=== PATIENT | male | born 1990 | race Caucasian/White ===

== ENCOUNTER 2019-03-28 08:41 | Emergency (ER) | payer SELFPAY ==
[2019-03-28 08:42] VITALS: BP 146/84; PULSE 100; RESP 16; TEMP 36.4; BMI 25.1
--- NOTE | 2019-03-28 08:54 | EKG12_ITS ---
Test Reason : CP Blood Pressure : / mmHG Vent. Rate : 075 BPM Atrial Rate : 075 BPM P-R Int : 146 ms QRS Dur : 104 ms QT Int : 348 ms P-R-T Axes : 077 073 066 degrees QTc Int : 388 ms Normal sinus rhythm with sinus arrhythmia Normal ECG Confirmed by MARY LUX ([id number]), news assignment editor TATIANNA CAMARA ([id number]) on 04/02/2019 12:59:01 PM Referred By: MARIANA Confirmed By:MARY LUX
--- NOTE | 2019-03-28 08:56 | ED.DCSUM_ITS ---
- ER Visit Summary Date of Service: 03/28/19 Chief Complaint: Chest pain History of Present Illness: The patient is a 29 M who was working on Tuesday, 3 days ago, pushing something through mixer. He had pain to the left ribs since that time, worse with exertion, palpation, or deep breathing. He denies shor tness of breath. Physical Examination: Vital signs unremarkable. Patient sitting upright in bed no acute distress. Heart is regular rate and rhythm. Lung sounds are clear. He has reproducible chest wall pain on the left anterior lower ribs, near where the ribs and cartilage meet. No deformity noted. No crepitus noted. Abdomen is soft and nontender. Test Results: EKG is sinus at 75 with no acute ischemia. Rib series with chest x-ray is normal. Emergency Department Course and Treatment: Test results discussed with patient at bedside. He is reassured with the findings. He does not want anything for pain. He wished to leave the emergency room prior to his paperwork being printed. Treatment Plan: [] Disposition: Discharge Impression: Chest wall pain This note was generated with [email or web address] dictation software. It may contain incorrect words, spelling, and punctuation that were not noted in review of the chart prior to signing ED Disposition - Plan for ED Patient: Referrals: Tenzin Lima MD [STAFF PHYSICIAN] -
--- NOTE | 2019-03-28 09:07 | RAD_ITS ---
STUDY: X-RAY - UNILATERAL RIBS ( LEFT ) WITH CHEST REASON FOR EXAM: Male, 29 years old. Rib pain. TECHNIQUE - RIBS: 4 view(s) of the ribs. TECHNIQUE - CHEST: Single PA view of the chest. COMPARISON: None. FINDINGS - RIBS: Normal visualized ribs without a demonstrated fracture. FINDINGS - CHEST: The lungs are clear and expanded. There is no demonstrated pleural abnormality. Normal size heart. Normal mediastinum and ethan. Normal visualized pulmonary arteries. Normal visualized aortic arch and descending thoracic aorta. Normal visualized thoracic spine. Normal visualized ribs, clavicles, and shoulders. There is no demonstrated abnormality of the visualized soft tissue structures of the upper abdomen. RAD/Ribs Uni Min 3V w/PA Chest IMPRESSION: RIBS: Normal x-ray examination of the ribs. CHEST: Normal x-ray examination of the chest. Electronically Signed: Lalit Hernandez, at 9:32 EDT , Service support ,
[2019-03-28 09:58] VITALS: BP 131/91; PULSE 63; RESP 16; O2SAT 98
== END 2019-03-28 10:42 | disposition home or self-care (01) ==
LOC: ED 08:57
PROVIDERS: Emergency Provider Emergency Medicine
DX: R07.89 Other chest pain (principal); Z82.49 Family history of ischemic heart disease and other diseases of the circulatory system
CPT/HCPCS: 71101; 93005; 99282

== ENCOUNTER 2020-04-29 10:43 | Emergency (ER) | payer OTHER, SELFPAY ==
[2020-04-29 10:44] VITALS: BP 153/108; PULSE 89; RESP 16; TEMP 36.6; O2SAT 99; BMI 26.5
--- NOTE | 2020-04-29 11:00 | RAD_ITS ---
STUDY: X-RAY - LEFT HAND REASON FOR EXAM: Male, 30 years old. CRUSHING INJURY, PAIN, SWELLING TECHNIQUE: 3 view(s) of the hand. COMPARISON: None. FINDINGS: Normal radiocarpal articulation. Normal distal radioulnar joint. Normal visualized carpal bones. Normal carpal articulations Normal carpometacarpal articulation of the thumb. Normal second through fifth carpometacarpal joints. Comminuted fracture at the base of the third and fourth metacarpals. Nondisplaced fracture at the base of the fifth metacarpal. Normal metacarpophalangeal joint of the thumb. Normal interphalangeal joint of the thumb. Normal proximal and distal phalanges of the thumb. Normal metacarpophalangeal joints of the second through fifth fingers. Normal proximal and distal interphalangeal joints of the second through fifth fingers. Normal phalanges of the second through fifth fingers. Soft tissue swelling. RAD/Hand Min 3 Views IMPRESSION: Nondisplaced fractures at the base of the third fourth and fifth metacarpals with overlying soft tissue swelling. Electronically Signed: Lalit Hernandez, at 12:06 EDT , Service support ,
--- NOTE | 2020-04-29 12:09 | ED.VISSUMM ---
- ER Visit Summary Date of Service: 04/29/20 Chief Complaint: Hand injury History of Present Illness: The patient is a 30 M who is ambidextrous. He crushed his left hand while working yesterday between concrete and a hitch. He denies any other complaints or injuries. Physical Examination: Tenderness to palpation over the dorsal left hand at the base of the metacarpals. Skin intact. Neurovascular intact distally. There is mild swelling. Test Results: X-rays show fracture at the base of the third, fourth, and fifth metacarpals on the left. Emergency Department Course and Treatment: Patient declined pain medicine here. He was placed in an Ortho-Glass splint by de, AP wrist splint. He tolerated this well. Neurovascular intact distally. Patient will be referred to hand surgery for follow-up. Prescription for Percocet. Prescription report showed no active prescriptions. Risks were discussed. Rest, ice, elevate. Return for any issues with the splint or any new or significant concerns. Treatment Plan: As above Disposition: Discharge Impression: Left hand third, fourth, fifth metacarpal fractures, closed, initial encounter This note was generated with Hand[employer]inder dictation software. It may contain incorrect words, spelling, and punctuation that were not noted in review of the chart prior to signing ED Disposition - Plan for ED Patient: Referrals: Care Physician,No Primary [Primary Care Provider] -
--- NOTE | 2020-04-29 12:11 | ED.DEP ---
ED Disposition - Plan for ED Patient: Instructions: ED Fx Hand Closed Prescriptions: Oxycodone HCl/Acetaminophen [Percocet 5/325] 1 tab PO Q6H PRN PRN 3 Days #12 tab PRN Reason: Pain Prescription Printed Referrals: Yamil Kelly MD [STAFF PHYSICIAN] -
== END 2020-04-29 12:18 | disposition home or self-care (01) ==
LOC: ED 11:26
PROVIDERS: Emergency Provider Emergency Medicine
DX: S62.343A Nondisplaced fracture of base of third metacarpal bone, left hand, initial encounter for closed fracture (principal); S62.345A Nondisplaced fracture of base of fourth metacarpal bone, left hand, initial encounter for closed fracture; S62.347A Nondisplaced fracture of base of fifth metacarpal bone, left hand, initial encounter for closed fracture; W23.0XXA Caught, crushed, jammed, or pinched between moving objects, initial encounter; Y93.89 Activity, other specified; Y92.9 Unspecified place or not applicable; Z72.0 Tobacco use
CPT/HCPCS: 29125; 73130; 99282

== ENCOUNTER → 2020-09-01 09:28 | Outpatient (CLI) | payer MEDICAID, SELFPAY ==
[2020-09-01 08:24] VITALS: BMI 26.0
[2020-09-01 12:26] LABS: Absolute Lymphocyte Count 2.02 X10^3/uL (0.83-4.51); Basophil# 0.03 X10^3/uL; Basophil% 0.4 % (0-1); Eosinophil# 0.31 X10^3/uL; Eosinophils% 3.9 % (0-5); Hematocrit 46.5 % (40-54); Hemoglobin 15.7 g/dL (13.0-16.5); Lymphocyte # 2.02 X10^3/ul (4.0); Lymphocyte % 25.2 % (19-41); Mean Corp Hgb Conc 33.8 g/dL (32-36); Mean Corpuscular Hgb 30.7 pg (27.0-32.0); Monocyte# 0.65 X10^3/uL; Monocyte% 8.1 % (0-10); NRBC Flagged by Analyzer 0 % (0-5); Neutrophil # 4.99 X10^3/uL (2.7-7.7); Platelet Count 277 K/mm3 (150-450); RBC Distribution Width CV 11.7 % (11.6-14.6); Red Blood Count 5.11 M/mm3 (4.6-6.2)
[2020-09-01 12:48] LABS: Hemoglobin A1c 5.1 % (3.8-5.6)
[2020-09-01 13:00] LABS: ALB/GLOB Ratio 1.1 RATIO (0.9-2.4); AST(SGOT) 14 U/L (15-37); Alanine Aminotransfer ALT/SGPT 27 U/L (16-61); Albumin, Serum 3.8 g/dL (3.2-5.0); Alkaline Phosphatase 79 U/L (45-117); Anion Gap 6 (5-15); BUN 7 mg/dL (7-18); BUN/Creat Ratio 7.1 RATIO (10-20); Calcium,Total 9.1 mg/dL (8.5-10.1); Chloride 109 mmol/L (98-107); Cholesterol 137 mg/dL (200); Creatinine, Serum 0.98 mg/dL (0.70-1.30); EST Glomerular Filtration Rate 95 mL/min (>60); Est Glom Filt Rate - Afr Amer 115 mL/min (>60); Globulin 3.4 g/dL (2.2-4.2); Glucose 69 mg/dL (74-106); High Density Lipoprotein 36 mg/dL; PSA,Total - Annual Screen 0.67 ng/mL (0.00-4.00); Potassium 3.9 mmol/L (3.5-5.1); Protein, Total 7.2 g/dL (6.4-8.2); Sodium Level 141 mmol/L (136-145); Thyroid Stim Hormone (TSH) 1.49 uIU/mL (0.358-3.74); Triglycerides 101 mg/dL; Very Low Density Lipoprotein 20 mg/dL (5-40)
== END ==
PROVIDERS: Visit Provider Internal Medicine
DX: N52.9 Male erectile dysfunction, unspecified (principal); R03.0 Elevated blood-pressure reading, without diagnosis of hypertension
CPT/HCPCS: 36415; 80053; 80061; 83036; 84153; 84443; 85025; G0103

== ENCOUNTER → 2021-03-24 14:36 | Outpatient (CLI) | payer MEDICAID, SELFPAY ==
[2021-03-13 15:56] VITALS: BMI 26.0
[2021-03-24 14:39] LABS: Bacteria 0 SEEN /hpf (None Seen); Red Blood Cells-Urine 0 SEEN /hpf (0-5); Squamous Epithelial Cells - UA 0 SEEN /hpf (0-5); White Blood Cells 0 SEEN /hpf (0-5)
[2021-03-24 15:24] LABS: Absolute Lymphocyte Count 3.36 X10^3/uL (0.83-4.51); Absolute Neutrophil Count 6.5 X10^3/uL (2.0-7.7); Basophil# 0.04 X10^3/uL; Basophil% 0.3 % (0-1); Eosinophil# 1.27 X10^3/uL; Eosinophils% 10.6 % (0-5); Hematocrit 48.3 % (40-54); Hemoglobin 16.3 g/dL (13.0-16.5); Lymphocyte # 3.36 X10^3/ul (0.83-4.51); Lymphocyte % 28.2 % (19-41); Mean Corp Hgb Conc 33.7 g/dL (32-36); Mean Corpuscular Volume 85.8 fL (80-94); Mean Platelet Vol. 11.6 fl (6.2-12.0); Monocyte# 0.74 X10^3/uL; Monocyte% 6.2 % (0-10); NRBC Flagged by Analyzer 0 % (0-5); Neutrophil # 6.48 X10^3/uL (2.7-7.7); Neutrophil % 54.4 % (47-70); Platelet Count 238 K/mm3 (150-450); RBC Distribution Width CV 13.5 % (11.6-14.6); RBC Distribution Width SD 42.5 fl (35.1-43.9); Red Blood Count 5.63 M/mm3 (4.6-6.2); White Blood Count 11.9 K/mm3 (4.4-11.0)
[2021-03-24 15:28] LABS: Color, Urine Yellow (Yellow); Glucose, Dipstick Normal (Normal); Ketone-Dipstick 5 mg/dl (Negative); Leukocyte Esterase-Dipstick 25 /ul (Negative); Nitrite-Dipstick Negative (Negative); Occult Blood-Urine 10 /ul (Negative); Protein-Dipstick 15 mg/dl (Negative); Specific Gravity, Urine 1.025 (1.002-1.030); Urine Bilirubin Dipstick Negative (Negative); Urine Clarity Clear (Clear); Urine Urobilinogen 1 mg/dl (Normal)
[2021-03-24 16:38] LABS: Calcium Oxalate Crystals Ur 1+ /hpf (<or=2+); Mucous, Urine RARE /hpf (<or=2+)
[2021-03-24 16:41] LABS: ALB/GLOB Ratio 1.2 RATIO (0.9-2.4); AST(SGOT) 27 U/L (15-37); Alanine Aminotransfer ALT/SGPT 41 U/L (16-61); Albumin, Serum 3.9 g/dL (3.2-5.0); Alkaline Phosphatase 114 U/L (45-117); Anion Gap 9 (5-15); BUN 15 mg/dL (7-18); BUN/Creat Ratio 10.3 RATIO (10-20); Calcium,Total 9.1 mg/dL (8.5-10.1); Chloride 102 mmol/L (98-107); Creatinine, Serum 1.46 mg/dL (0.70-1.30); EST Glomerular Filtration Rate 60 mL/min (>60); Est Glom Filt Rate - Afr Amer 72 mL/min (>60); Globulin 3.3 g/dL (2.2-4.2); Glucose 79 mg/dL (74-106); Potassium 3.7 mmol/L (3.5-5.1); Protein, Total 7.2 g/dL (6.4-8.2); Sodium Level 140 mmol/L (136-145)
[2021-03-24 17:05] LABS: HIV - WCH Non-Reactive (Nonreactive)
[2021-03-24 17:51] LABS: Chlamydia Trachomatis by PCR Negative (Negative); Neisserai gonorrhoeae by PCR Negative (Negative); Probe Check PASS; Sample Adequacy Control PASS; Specimen Processing Control PASS
== END ==
PROVIDERS: PCP Internal Medicine; Referring Provider Physician Assistant; Visit Provider Physician Assistant
DX: Z11.3 Encounter for screening for infections with a predominantly sexual mode of transmission (principal); R30.0 Dysuria; R31.9 Hematuria, unspecified; F15.10 Other stimulant abuse, uncomplicated
CPT/HCPCS: 36415; 80053; 81001; 84439; 84443; 85025; 86703; 87086; 87088; 87491; 87591

== ENCOUNTER → 2021-04-01 10:02 | Outpatient (CLI) | payer MEDICAID, SELFPAY ==
[2021-03-13 15:56] VITALS: BMI 26.0
[2021-04-01 10:04] LABS: Bacteria 0 SEEN /hpf (None Seen); Mucous, Urine 0 SEEN /hpf (<or=2+); Red Blood Cells-Urine 0 SEEN /hpf (0-5); Squamous Epithelial Cells - UA 0 SEEN /hpf (0-5); White Blood Cells 0 SEEN /hpf (0-5)
[2021-04-01 12:19] LABS: Color, Urine Yellow (Yellow); Glucose, Dipstick Normal (Normal); Ketone-Dipstick Negative (Negative); Leukocyte Esterase-Dipstick Negative /ul (Negative); Nitrite-Dipstick Negative (Negative); Occult Blood-Urine Negative /ul (Negative); Protein-Dipstick Negative (Negative); Urine Bilirubin Dipstick Negative (Negative); Urine Clarity Clear (Clear); Urine Urobilinogen Normal (Normal)
[2021-04-01 12:38] LABS: Anion Gap 3 (5-15); BUN 9 mg/dL (7-18); BUN/Creat Ratio 9.6 RATIO (10-20); Calcium,Total 9.2 mg/dL (8.5-10.1); Chloride 107 mmol/L (98-107); Creatinine, Serum 0.94 mg/dL (0.70-1.30); EST Glomerular Filtration Rate 100 mL/min (>60); Est Glom Filt Rate - Afr Amer 121 mL/min (>60); Glucose 56 mg/dL (74-106); Potassium 4.5 mmol/L (3.5-5.1); Sodium Level 139 mmol/L (136-145)
== END ==
PROVIDERS: PCP Internal Medicine; Referring Provider Physician Assistant; Visit Provider Physician Assistant
DX: R31.9 Hematuria, unspecified (principal)
CPT/HCPCS: 36415; 80048; 81001

== ENCOUNTER 2021-10-14 11:24 | Day surgery (SDC) | payer MEDICAID, SELFPAY ==
[2021-10-14] VITALS (7 sets, daily range): BP systolic 102–135; BP diastolic 49–70; PULSE 65–87; RESP 16; TEMP 36.3–36.5; O2SAT 97–100; BMI 24.7
--- NOTE | 2021-10-14 | EGD_PTH ---
PATIENT: CHRISTOPHER GAY LOC: EN U#:[id number] AGE/SX: 31/M ROOM: RE10/14/[address]: Dr. Marcus Mathew DO : 1990 BED: DIS: 10/14/2021 SPEC #: [id number] RECD: 10/14/21 15:55 STATUS: ASHLEE CINDY #: [id number] MAMADOU: 10/14/21 00:[address]: Marcus Mathew DEPT: SURGICAL PATHOLOGY RECD BY: Atif Rodriguez ENTERED: 10/15/21 12:24 SP TYPE: EGD BIOPSY MACRINA DR: Dr. Shira Boyd MD Tissues: A - Duodenum, NOS B - Stomach, NOS C - Esophageal mucous membrane Procedures: Surgery Specimen Level IV HEADER OPERATION: EGD ([facility] [place]) with biopsy PRE-OP DIAGNOSIS: Eosinophilic gastroenteritis, viral hepatitis C TISSUE SUBMITTED: A ? Duodenum biopsy, B ? Stomach biopsy, C ? Random esophagus biopsy MICROSCOPIC DIAGNOSIS A. Duodenum, biopsy: No pathologic change. B. Gastric mucosa, biopsy: Chronic gastritis. See comment. C. Esophagus, biopsy: Focal changes of reflux. AM:shirley 10/16/2021 COMMENT B. Immunohistochemistry for Helicobacter pylori can be performed if clinically indicated. Please notify the Laboratory if it is needed. MICROSCOPIC DESCRIPTION Slides are reviewed. GROSS DESCRIPTION A - Received in fixative is one container labeled with the patient's name and designated duodenum biopsy. The specimen consists of multiple irregular fragments of light fay soft tissue that in aggregate measure 1 x 0.5 x 0.1 cm. The specimen is totally submitted in one cassette. B - Received in fixative is one container labeled with the patient's name and designated stomach biopsy. The specimen consists of two irregular fragments of light fay soft tissue that in aggregate measure 0.9 x 0.4 x 0.1 cm. The specimen is totally submitted in one cassette. C - Received in fixative is one container labeled with the patient's name and designated random esophagus biopsy. The specimen consists of multiple irregular fragments of light fay soft tissue that in aggregate measure 0.6 x 0.6 x 0.1 cm. The specimen is totally submitted in one cassette. / ADRIANNE:shirley 10/15/2021 TC:3 CPT: 66849 x3
[2021-10-14] MEDS: Lactated Ringers 1,000 ML 15 ML IV (12:11)
[2021-10-14 12:16] LABS: Amphetamine Urine VISTA NEGATIVE (<1000 ng/mL); Barbiturate Urine VISTA NEGATIVE (< 200 ng/mL); Benzodiazepine Urine VISTA NEGATIVE (< 200 ng/mL); Cocaine Urine VISTA NEGATIVE (< 300 ng/mL); Ecstacy Urine VISTA NEGATIVE (< 500 ng/mL); Methadone Urine VISTA NEGATIVE (< 300 ng/mL); PCP Urine VISTA NEGATIVE (< 25 ng/mL); THC Urine VISTA NEGATIVE (< 50 ng/mL); Vista UDS pH Range 7
--- NOTE | 2021-10-14 12:46 | PCM.HP.BLA ---
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 The Diagnosis made 2010 with [facility] without recent follow up. History of steroid use as treatment. He has been having a lot of GI upset with tuna and rice being the only foods not causing issue. Continues to have difficulty with diarrhea. He denies any rash. He does have an uncle that also has eosinophilic gastroenteritis. He does not know what treatment that he has been on is currently on. He denies any esophageal dysphagia. He denies any chest pain or shortness of breath. He cannot identify any triggers but he knows what his safe foods are. He did have an EGD/colonoscopy around 2010 to help make a diagnosis. History of alcoholism, methamphetamine abuse and hallucinogenic abuse. He has been sober for the last year. Smokes about 1.5-2 packs of cigarettes a day. ROS Const Constitutional: No anorexia, fatigue, fever(s), weight change or sleep problems Eyes Eyes: No change in vision ENT ENT: No abnormal hearing, difficulty swallowing, mouth lesions, tongue swelling or throat swelling Resp Respiratory: No cough or shortness of breath Cardio Cardiology: No chest pain at rest, chest pain with exertion, shortness of breath or dyspnea on exertion Gastro GI: No difficulty swallowing Genitourinary Male: No difficulty urinating or burning urination Musc Musculoskeletal: No joint pain, joint swelling, muscle weakness or decreased muscle mass Skin Skin: No hair loss in leg, yellowing of the eye, itchy eyes, rash, skin ulcer or skin swelling Neuro Neurology: No abnormal hearing, abnormal movements, confusion, unsteady gait/balance or memory loss Psych Psychiatric: No anxiety, No confusion and No memory loss Endo Endocrine: No fatigue or weight change Aller/Imm Allergy/Immunologic: No itchy eyes, throat swelling or tongue swelling Roberto/Lymp Hematologic/Lymphatic: No easy bleeding, easy bruising or enlarged lymph nodes Exam Const General: cooperative and comfortable Nutritional Appearance: average body habitus and well nourished [facility] Head: normal to inspection Ears: hearing grossly normal bilaterally Nose: external nose normal Face and sinus: normal facial exam Mouth: oral mucosae normal Throat: posterior oropharynx normal Eyes General: appearance normal, both eyes and all related structures Neck Neck: normal visual inspection Chest Chest palpation & inspection: normal inspection of the chest and normal palpation of entire chest wall Resp Effort & Inspection: normal respiratory effort Auscultation: Bilateral: Clear to Auscultation Cardio Palpation: normal PMI Rate: regular rate Rhythm: regular rhythm GI Inspection: normal to inspection Auscultation: normal bowel sounds Percussion: normal to percussion Palpation: no hepatosplenomegaly Skin General: no rashes or lesions noted Neuro General: patient alert Extrem General: normal to inspection Psych Affect: normal affect Quality Reporting Tobacco Screening ([facility] 138) Smoking Status: Current every day smoker Assessment and Plan Assessment and Plan (1) Eosinophilic gastroenteritis: Status: Acute Plan - Dr. Velazquez Friend, DO: The differential diagnosis for eosinophilic gastroenteritis would include celiac disease, Churg-Deon disease, inflammatory bowel disease, HIV, JARED associated disease. He has agreed to undergo upper endoscopy with biopsies. I would also suggest stools for ova parasites, CBC with differential to see if there is any peripheral eosinophilia. I would also check an ESR, CRP, JARED and ANCA. He is not willing to go on steroids at this time. He is willing to try short course of medical therapy, but he would like a more naturopathic or homeopathic way to treat his underlying disease. (2) Viral hepatitis C: Status: Chronic Plan - Dr. Velazquez Friend, DO: We will address this on the next visit. Not sure if he was treated for hepatitis C and we also have to check his vaccination status. I have re-examined the patient. There are no clinical changes since date of exam.
--- NOTE | 2021-10-14 13:29 | OP.EGD_ITS ---
Patient Name: Tyler Freire Procedure Date: 10/14/2021 12:51 PM Date of : 1990 Age: 31 Procedure: Upper GI endoscopy Indications: Epigastric abdominal pain Providers: Marcus Mathew DO Medicines: See the Anesthesia note for documentation of the administered medications Patient Profile: This is a 31 year old male. Refer to note in patient chart for documentation of history and physical. Patient has symptoms of acute vomiting. Complications: No immediate complications. Procedure: Pre-Anesthesia Assessment: - Prior to the procedure, a History and Physical was performed, and patient medications and allergies were reviewed. The patient is competent. The risks and benefits of the procedure and the sedation options and risks were discussed with the patient. All questions were answered and informed consent was obtained. Patient identification and proposed procedure were verified by the physician in the pre-procedure area. Mental Status Examination: alert and oriented. Airway Examination: normal oropharyngeal airway and neck mobility. Respiratory Examination: clear to auscultation. CV Examination: normal. Prophylactic Antibiotics: The patient does not require prophylactic antibiotics. Prior Anticoagulants: The patient has taken no previous anticoagulant or antiplatelet agents. After reviewing the risks and benefits, the patient was deemed in satisfactory condition to undergo the procedure. The anesthesia plan was to use minimal sedation / analgesia (anxiolysis). Immediately prior to administration of medications, the patient was re-assessed for adequacy to receive sedatives. The heart rate, respiratory rate, oxygen saturations, blood pressure, adequacy of pulmonary ventilation, and response to care were monitored throughout the procedure. The physical status of the patient was re-assessed after the procedure. After obtaining informed consent, the endoscope was passed under direct vision. Throughout the procedure, the patient's blood pressure, pulse, and oxygen saturations were monitored continuously. The gastroscope was introduced through the mouth, and advanced to the second part of duodenum. The upper GI endoscopy was accomplished without difficulty. The patient tolerated the procedure well. Moderate Sedation: Moderate (conscious) sedation was administered by the endoscopy nurse and supervised by the endoscopist. The following parameters were monitored: oxygen saturation, heart rate, blood pressure, and response to care. Total physician intraservice time was 2 minutes. Scope In: 1:04:54 PM Scope Out: 1:13:28 PM Total Procedure Duration Time 0 hours 8 minutes 34 seconds Findings: Mucosal changes including ringed esophagus, feline appearance, small-caliber esophagus, circumferential folds and mucosal friability were found in the entire esophagus. Esophageal findings were graded using the Eosinophilic Esophagitis Endoscopic Reference Score (EoE-EREFS) as: Edema Grade 1 Present (decreased clarity or absence of vascular markings), Rings Grade 2 Moderate (distinct rings that do not occlude passage of diagnostic 8-10 mm endoscope), Exudates Grade 1 Mild (scattered white lesions involving less than 10 percent of the esophageal surface area), Furrows Grade 1 Present (vertical lines with or without visible depth) and Stricture none (no stricture found). Biopsies were taken with a cold forceps for histology. Verification of patient identification for the specimen was done. Estimated blood loss was minimal. Biopsies were taken with a cold forceps for histology. Verification of patient identification for the specimen was done. Estimated blood loss was minimal. Localized mild inflammation characterized by congestion (edema) was found in the gastric antrum. Biopsies were taken with a cold forceps for histology. Verification of patient identification for the specimen was done. Estimated blood loss was minimal. Patchy mildly erythematous mucosa without active bleeding and with no stigmata of bleeding was found in the duodenal bulb. Biopsies were taken with a cold forceps for histology. Verification of patient identification for the specimen was done. Estimated blood loss was minimal. A medium-sized hiatal hernia was present. Impression: - Esophageal mucosal changes consistent with eosinophilic esophagitis. Biopsied. - Gastritis. Biopsied. - Erythematous duodenopathy. Biopsied. Recommendation: - Discharge patient to home. - Resume previous diet. - Continue present medications. - Await pathology results. - Return to my office. Procedure Code(s): --- Professional --- 26847, Esophagogastroduodenoscopy, flexible, transoral; with biopsy, single or multiple CPT copyright 2017 [employer]. All rights reserved. The codes documented in this report are preliminary and upon it account manager review may be revised to meet current compliance requirements. Marcus Mathew DO 10/14/2021 1:29:03 PM This report has been signed electronically. Number of Addenda: 1 Note Initiated On: 10/14/2021 12:51 PM Addendum Number: 1 Addendum Date: 06/03/2022 6:19:12 AM MAC was used instead of moderate sedation for the patient. Marcus Mathew DO 06/03/2022 6:19:16 AM This report has been signed electronically.
--- NOTE | 2021-10-14 13:30 | OP.CCLET_ITS ---
06/03/2022 Shira Boyd [facility] [address] [place] [address] Re : Upper GI endoscopy procedure for Tyler Freire Dear Dr. Boyd This procedure was performed on Thursday, October 14, 2021. 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 Biopsied. - Gastritis. Biopsied. - Erythematous duodenopathy. Biopsied. Recommendations : - Discharge patient to home. - Resume previous diet. - Continue present medications. - Await pathology results. - Return to my office. My findings are described in the full procedure note, which is enclosed. If I can be of further assistance, please feel free to contact me at . Sincerely, Marcus Mathew, 10/14/2021 1:29:03 PM This report has been signed electronically.
== END 2021-10-14 23:59 | disposition home or self-care (01) ==
LOC: EN 11:27 → AC 11:28
PROVIDERS: Anesthesiology; PCP Internal Medicine; Referring Provider Internal Medicine; Visit Provider Internal Medicine Gastroenterology
PROC: 0DJ08ZZ Inspection of Upper Intestinal Tract, Via Natural or Artificial Opening Endoscopic (ICD-10-PCS; CPT 43235; principal; 2021-10-14 12:40)
DX: K29.50 Unspecified chronic gastritis without bleeding (principal); B18.2 Chronic viral hepatitis C; F17.200 Nicotine dependence, unspecified, uncomplicated; K52.81 Eosinophilic gastritis or gastroenteritis; J45.909 Unspecified asthma, uncomplicated; K21.9 Gastro-esophageal reflux disease without esophagitis
CPT/HCPCS: 43239; 80307; 87426; 88305; J7120; J2405

== ENCOUNTER 2021-10-20 09:56 | Outpatient (CLI) | payer MEDICAID, SELFPAY ==
[2021-10-20 13:07] LABS: Hepatitis C Antibody Non-Reactive (Nonreactive)
[2021-10-23 17:07] LABS: HCV Quant. RNA PCR HCV Not Detected IU/mL (.); HEPATITIS B SURFACE AG Negative (Negative); Hepatitis A IgM Antibody Negative (Negative); Hepatitis B Core AB IgM Negative (Negative)
[2021-10-23 19:01] LABS: Hep C Antibodies <0.1 s/co ratio (0.0-0.9)
== END 2021-10-20 23:59 | disposition short-term general hospital (02) ==
LOC: BIMLAB 09:57
PROVIDERS: PCP Internal Medicine; Visit Provider Internal Medicine Gastroenterology
DX: B19.20 Unspecified viral hepatitis C without hepatic coma (principal)
CPT/HCPCS: 36415; 80074; 86803; 87521; 87522; 87902

== ENCOUNTER 2022-02-19 06:36 | Emergency (ER) | payer MEDICAID, SELFPAY ==
[2022-02-19 06:37] VITALS: BP 145/90; PULSE 97; RESP 16; TEMP 36.4; O2SAT 99; BMI 25.1
--- NOTE | 2022-02-19 07:01 | EDS_ITS ---
HPI History of Present Illness Chief Complaint: Other, Pain/Inj Informant: patient Narrative Narrative: 31-year-old male presenting to the emergency department with a chief complaint of swollen painful lymph nodes x1 month. He tells me that he started to have pain in his jaw/teeth was placed on an unknown antibiotic by urgent care. He went to the dentist had x-rays and they pulled the tooth. He developed a rash on his neck with some pustules. That has resolved but the tender swollen lymph nodes have still remained. Has a history of eosinophilic gastroenteritis and notes that anti-inflammatories tend to really upset his stomach but he has been taking some. He notes he has had some weight loss this month but related more to the dental issues. He states that he has had some night sweats. He has not noticed lymph nodes anywhere else on him. He does state that about a month ago he had a sore throat. No reported fever. PFSH PFS Medical History Alcohol use Asthma Dietary restriction Eosinophilic gastroenteritis Heartburn Seasonal allergic rhinitis Shortness of breath on exertion Smoker Substance abuse Wears glasses Home Medications NK 02/19/22 [History Last Taken Unknown] Allergy/AdvReac Type Severity Reaction Status Date / Time Penicillins [PCN] Allergy Itching Verified 02/03/22 08:13 Family History Father Heart disease Grandmother Heart disease Grandfather Heart disease Other Cancer Surgical History History of esophagogastroduodenoscopy (EGD) History of eye surgery Social History Smoking Status: Current every day smoker tobacco type: cigarettes Tobacco: How many years used: 6 alcohol intake: former substance use type: former substance user, methamphetamine and other details: mushrooms what type of physical activity do you participate in: other details: manual work ROS ROS ED Constitutional Constitutional ED: Reports sweats and weight loss; Denies chills or fever(s) Eyes Eyes: Denies change in vision or diplopia ENT ENT ED: Reports other Details: Dental pain neck lymph node enlargement ; Denies ear pain, rhinorrhea or sore throat Cardiovascular Cardiovascular: Denies chest pain, orthopnea, palpitations or racing heartbeat Respiratory/Chest Respiratory/Chest: Denies cough, dyspnea or orthopnea Gastrointestinal Gastrointestinal: Denies abdominal pain, diarrhea, nausea or vomiting Genitourinary Genitourinary ED: Denies dysuria, hematuria or urinary frequency Musculoskeletal Musculoskeletal: Denies arthralgias or myalgias Integumentary Denies abscess or rash Neurologic Neurologic: Denies headache(s) or weakness Psychiatric Psychiatric: Denies anxiety, depression, suicidal ideation or suicidal thoughts Endocrine Endocrinology: Denies polydipsia, polyphagia or polyuria Allergic/Immunologic Allergic/Immunologic ED: Denies mouth swelling, tongue swelling or urticaria EXAM Physical Exam Const Vital Signs: 02/19/22 06:37 02/19/22 06:41 Temperature 97.5 F L Temperature Source Temporal Pulse Rate 97 Respiratory Rate 16 Respiratory Effort Normal Non-Labored Respiratory Pattern Normal Blood Pressure 145/90 H Blood Pressure Mean 108 Pulse Ox 99 Oxygen Delivery Method Room Air Positive well nourished and well developed General Appearance ED: well developed HEENT Reports normocephalic, head/scalp atraumatic, TM's clear and moist mucous membranes Negative for trauma Tympanic Membrane ED: Yes TM's clear Eyes PERRL and EOMs intact bilaterally Neck supple and no JVD Neck Narrative: There are small pea-sized lymph nodes palpable in the anterior and posterior chain. No overlying erythema. They are not fixed. Oral pharyngeal exam shows healing extraction site. Resp normal respiratory effort and clear to auscultation bilaterally Cardio regular rate, regular rhythm and no murmurs GI normal to inspection, nondistended, normoactive bowel sounds and non-tender Palpation: soft Back/Spine no CVA tenderness and normal ROM Extremity normal to inspection Extremity Narrative: I do not palpate any axillary or inguinal lymphadenopathy General Extremety ED: Negative for edema General Extremity: Negative for edema Neuro oriented x3 and CN's II-XII intact bilaterally Sensorium / Orientation: alert Motor Exam: strength 5/5 throughout Psych mental status grossly normal Mood & Affect: Negative for depressed or tearful Skin no rashes or lesions noted and no wounds MDM MDM MDM Narrative Medical decision making narrative: White count is 10.2 with a slight elevation of eosinophils at 7.9. Monospot negative. HIV test is pending and I will check this when he returns later today. Patient's been on 2 weeks of antibiotics. He would like to hold on taking anymore. He is hesitant with prednisone and anti-inflammatories given his eosinophilic gastroenteritis. I will refer him to ENT if he is not improving return if worsening or concerns Lab Data Attestation: I reviewed the patient's lab results. Labs: Laboratory Results - last 24 hr 02/19/22 02/19/22 07:16 07:16 WBC 10.2 RBC 5.19 Hgb 15.4 Hct 45.0 MCV 86.7 MCH 29.7 MCHC 34.2 RDW Std Deviation 38.8 RDW Coeff of Chance 12.2 Plt Count 208 MPV 11.1 Immature Gran % (Auto) 0.300 Neut % (Auto) 59.9 Lymph % (Auto) 25.0 [place] % (Auto) 6.6 Eos % (Auto) 7.9 H Baso % (Auto) 0.3 Absolute Neuts (auto) 6.1 Absolute Lymphs (auto) 2.54 Nucleated RBC % 0 Monoscreen Negative Discharge Plan Triage Chief Complaint: Other, Pain/Inj ED Provider: Terry Garcia Dx/Rx/DC Orders Clinical Impression: Acute lymphadenitis of neck Instructions: ED Adenitis Cervical No Abx Tx Prescriptions: No Action NK RF: 0 Primary Care Provider: Shira Boyd Referrals: Arik Robles MD [STAFF PHYSICIAN] - As soon as possible Shira Boyd MD [Primary Care Provider] - Disposition Disposition: Home, Self Care
[2022-02-19 07:22] LABS: Absolute Lymphocyte Count 2.54 X10^3/uL (0.83-4.51); Absolute Neutrophil Count 6.1 X10^3/uL (2.0-7.7); Basophil# 0.03 X10^3/uL; Basophil% 0.3 % (0-1); Eosinophils% 7.9 % (0-5); Hemoglobin 15.4 g/dL (13.0-16.5); Lymphocyte # 2.54 X10^3/ul (0.83-4.51); Mean Corp Hgb Conc 34.2 g/dL (32-36); Mean Corpuscular Hgb 29.7 pg (27.0-32.0); Mean Corpuscular Volume 86.7 fL (80-94); Mean Platelet Vol. 11.1 fl (6.2-12.0); Monocyte# 0.67 X10^3/uL; Monocyte% 6.6 % (0-10); NRBC Flagged by Analyzer 0 % (0-5); Neutrophil # 6.09 X10^3/uL (2.7-7.7); Neutrophil % 59.9 % (47-70); Platelet Count 208 K/mm3 (150-450); RBC Distribution Width CV 12.2 % (11.6-14.6); RBC Distribution Width SD 38.8 fl (35.1-43.9); Red Blood Count 5.19 M/mm3 (4.6-6.2); White Blood Count 10.2 K/mm3 (4.4-11.0)
[2022-02-19 07:35] LABS: Internal QC Validated? YES +Cl - CLEAR BKGD; Monotest Negative (Negative)
[2022-02-19 09:13] LABS: HIV - WCH Non-Reactive (Nonreactive)
== END 2022-02-19 07:46 | disposition home or self-care (01) ==
LOC: ED 07:23
PROVIDERS: Emergency Provider Emergency Medicine; PCP Internal Medicine; Visit Provider Emergency Medicine
DX: L04.0 Acute lymphadenitis of face, head and neck (principal); F17.210 Nicotine dependence, cigarettes, uncomplicated
CPT/HCPCS: 85025; 86308; 86703; 99282

== ENCOUNTER 2022-07-22 06:18 | Emergency (ER) | payer MEDICAID, SELFPAY ==
[2022-07-22 06:19] VITALS: BP 158/90; PULSE 92; RESP 16; TEMP 36.7; O2SAT 97; BMI 25.1
--- NOTE | 2022-07-22 06:31 | EDS_ITS ---
HPI History of Present Illness Chief Complaint: Eye Problem Narrative Narrative: Patient presents for rabies vaccination. He states that approximately 3 days ago, on Tuesday, he was laying block. There was a nest and 2 bats were inside. Somehow, the nest was at eye level and the bat was crushed in between 2 blocks. Patient had bruit anterior his right eye. He does wear contact lenses. He states he scraped it out of his eye and went about his day. He denies any loss of vision or any other symptoms. His relative who is a large animal vet advised him that he needs the rabies vaccination because of exposure to bad guts into his right thigh. He denies loss of vision or discharge from his eye. No other symptoms. [facility] Medical History Alcohol use Asthma Dietary restriction Eosinophilic gastroenteritis Heartburn Seasonal allergic rhinitis Shortness of breath on exertion Smoker Substance abuse Wears glasses Home Medications NK 02/19/22 [History Last Taken Unknown] Allergy/AdvReac Type Severity Reaction Status Date / Time Penicillins [PCN] Allergy Itching Verified 07/22/22 06:21 Family History Father Heart disease Grandmother Heart disease Grandfather Heart disease Other Cancer Surgical History History of esophagogastroduodenoscopy (EGD) History of eye surgery Social History Smoking Status: Former smoker Tobacco: How many years used: 6 alcohol intake: former substance use type: former substance user, methamphetamine and other details: mushrooms what type of physical activity do you participate in: other details: manual work ROS ROS ED ROS Narrative Constitutional: No fever, no chills. HEENT: No sore throat. No neck pain. No loss of vision. No rhinorrhea. Bat guts into right eye 3 days ago. Cardiovascular: No chest pain. No palpitations. No pedal edema. Respiratory: No cough, no shortness of breath. Abdominal: No abdominal pain. No nausea. No vomiting. Genitourinary: No dysuria. No hematuria. Musculoskeletal: No myalgias. No arthralgias. Neurologic: No headaches. No dizziness. No lightheadedness. Skin: No rash. No change in color. Psychiatric: No depression. No anxiety. EXAM Physical Exam Narrative Exam Narrative: Afebrile. Vital signs noted. HEENT: Normocephalic. Atraumatic. PERRL, EOMI. Neck soft and supple. No point tenderness or step off. No noted discharge from eye. No subconjunctival injection. Cardiovascular: Regular rate and rhythm. No murmurs, rubs, or gallops appreciated. Respiratory: No tachypnea. Lungs clear to auscultation bilaterally. Gastrointestinal: Abdomen soft, nontender, with normoactive bowel sounds. No rebound or guarding. Neurological: Awake. Alert. Nonfocal, nonlateralizing. Skin: No rash. Normal color. No pallor. Musculoskeletal: No pedal edema. Full range of motion extremities. Const Vital Signs: 07/22/22 06:19 Temperature 98.1 F Temperature Source Temporal Pulse Rate 92 Respiratory Rate 16 Blood Pressure 158/90 H Blood Pressure Mean 112 Pulse Ox 97 MDM MDM MDM Narrative Medical decision making narrative: Given his exposure to bad intestine/debris, he was started on the rabies vaccination series and administered rabies immunoglobulin intramuscularly. He will return to the emergency department on days 3, 7, and 14 for continued rabies vaccination. Disposition is discharged home in stable condition. Discharge Plan Triage Chief Complaint: Eye Problem ED Provider: Delmar Lechuga Dx/Rx/DC Orders Clinical Impression: Exposure to bat without known bite, Need for prophylactic vaccination against rabies Instructions: Understanding Rabies Prescriptions: No Action NK Primary Care Provider: Shira Boyd Referrals: Shira Boyd MD [Primary Care Provider] - Activity Restrictions/Additional Instructions: Return to the emergency department as instructed on days 3, 7, and 14 for rabies vaccination series. Disposition Disposition: Home, Self Care
[2022-07-22] MEDS: Rabies Vaccine,Human Diploid 2.5 UNITS Vial IM (07:42)
[2022-07-22] MEDS: Rabies Immune Globulin/PF 300 UNIT/ML, 5 ML VIAL 1630 UNIT IM (07:46)
== END 2022-07-22 08:26 | disposition home or self-care (01) ==
PROVIDERS: Emergency Provider Emergency Medicine; PCP Internal Medicine; Visit Provider Emergency Medicine
DX: Z20.3 Contact with and (suspected) exposure to rabies (principal); Z23 Encounter for immunization; Z87.891 Personal history of nicotine dependence
CPT/HCPCS: 90375; 90675; 96372; 99282

== ENCOUNTER → 2022-07-25 | Outpatient (CLI) | payer MEDICAID, SELFPAY ==
[2022-07-25 11:01] VITALS: BP 133/85; PULSE 70; RESP 18; O2SAT 99; BMI 25.1
[2022-07-25] MEDS: Rabies Vaccine,Human Diploid 2.5 UNITS Vial IM (11:22)
== END | disposition home or self-care (01) ==
PROVIDERS: PCP Internal Medicine; Visit Provider Emergency Medicine
DX: Z23 Encounter for immunization (principal)
CPT/HCPCS: 90675; 96372

== ENCOUNTER 2022-07-29 18:54 | Outpatient (CLI) | payer MEDICAID, SELFPAY ==
[2022-07-29 18:54] VITALS: BP 148/95; PULSE 94; RESP 15; TEMP 36.2; O2SAT 100; BMI 25.1
[2022-07-29] MEDS: Rabies Vaccine,Human Diploid 2.5 UNITS Vial IM (19:54)
== END 2022-07-29 20:12 | disposition home or self-care (01) ==
LOC: ED 20:12
PROVIDERS: PCP Internal Medicine
DX: Z23 Encounter for immunization (principal)
CPT/HCPCS: 90675; 96372

== ENCOUNTER → 2022-08-05 | Outpatient (CLI) | payer MEDICAID, SELFPAY ==
[2022-08-05 16:09] VITALS: BP 134/87; PULSE 97; RESP 14; O2SAT 95; BMI 25.1
[2022-08-05] MEDS: Rabies Vaccine,Human Diploid 2.5 UNITS Vial IM (16:24)
== END | disposition home or self-care (01) ==
PROVIDERS: PCP Internal Medicine
DX: Z23 Encounter for immunization (principal)
CPT/HCPCS: 90471; 90675